=== PATIENT | female | born 1930 | race Caucasian/White ===

== ENCOUNTER 2018-01-27 15:59 | Emergency (ER) | payer MEDICARE, BC ==
[2018-01-27 16:03] VITALS: BP 179/69
--- NOTE | 2018-01-27 16:06 | EDM.PDOC ---
"ED HPI GENERAL MEDICAL PROBLEM - General Chief Complaint: Lower Extremity Injury/Pain Stated Complaint: IN BY AMBULANCE Time Seen by Provider: 01/27/18 16:06 Source of Information: Reports: Patient, EMS, Family, RN, RN Notes Reviewed History Limitations: Reports: No Limitations - History of Present Illness INITIAL COMMENTS - FREE TEXT/NARRATIVE: Pt arrives to ER by ambulance with c/o severe left hip pain sustained from a ground level fall from tripping over a floor mat at the entry of the [employer]. Pt denies head injury, neck pain, or any other injury. She was unable to get up, and cannot tolerate any ROM of the left hip. 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: IV/IO, Other Medication(s) (Fentanyl 12.5mcg IVP x1 from paramedics prior to arriving to the ER.) Left Hip Pain Score (Numeric/FACES): 9 - Related Data Allergies Allergy/AdvReac Type Severity Reaction Status Date / Time acetaminophen Allergy Cannot Verified 01/27/18 16:04 [From Darvocet-N] Remember propoxyphene napsylate Allergy Cannot Verified 01/27/18 16:04 [From Darvocet-N] Remember Home Meds: Home Meds Alendronate Sodium [Alendronate] 1 tab PO .WEEKLY 05/01/14 [History] Aspirin [Ecotrin] 1 tab PO DAILY 05/01/14 [History] Calcium Carbonate/Vitamin D3 [Calcium 600 + Vit D Tablet] 2 cap PO DAILY [History] Citalopram Hydrobromide [Celexa] 1 tab PO DAILY 05/01/14 [History] Dicyclomine [Bentyl] 1 tab PO Q6H PRN 05/01/14 [History] Docusate Sodium [Colace] 1 tab PO DAILY PRN 05/01/14 [History] Furosemide 1 tab PO DAILY 05/01/14 [History] Insulin Glarg,Human.Rec.Analog [Lantus Solostar] 20 units INJECT BEDTIME [History] Insulin Lispro [Humalog] 6 - 10 units INJECT TIDAC 05/01/14 [History] Multivitamin with Minerals [Multiple Vitamin] 1 tab PO DAILY 05/01/14 [History] Omeprazole 1 tab PO DAILY PRN 05/01/14 [History] atorvaSTATin Calcium [Atorvastatin Calcium] 1 tab PO BEDTIME 05/01/14 [History] metroNIDAZOLE [Metronidazole] 1 applic TOP ASDIRECTED PRN 05/01/14 [History] Metoprolol Tartrate [Lopressor] 25 mg PO BID 06/27/15 [History] Amylase/Lipase/Protease [Pancrelipase 5,000] 30,000 units PO TID 07/17/15 [ History] traZODone 150 mg PO BEDTIME 07/17/15 [History] Past Medical History HEENT History: Reports: Impaired Vision Cardiovascular History: Reports: CAD, High Cholesterol, Hypertension, [place] Other Cardiovascular History: [place] and Chf06/04/2015 Other Respiratory History: 06/04/2015 Other Genitourinary History: History of renal cell cancer. Nephrectomy Other Musculoskeletal History: Back surgery Other Neuro History: and patient state that she is having memory problems Endocrine/Metabolic History: Reports: Diabetes, Type I Oncologic (Cancer) History: Reports: Other (See Below) Other Oncologic History: kidney - Past Surgical History HEENT Surgical History: Reports: Cataract Surgery Social & Family History - Family History Family Medical History: Noncontributory - Living Situation & Occupation Living situation: Reports: , with Spouse Occupation: Retired Review of Systems - Review of Systems Review Of Systems: ROS reveals no pertinent complaints other than HPI. ED EXAM, GENERAL - Physical Exam Exam: See Below Exam Limited By: No Limitations General Appearance: Alert, WD/WN, No Apparent Distress Eye Exam: Bilateral Eye: Normal Inspection Ears: Normal External Exam, Hearing Grossly Normal Nose: Normal Inspection Throat/Mouth: Normal Inspection, Normal Voice, No Airway Compromise Head: Atraumatic, Normocephalic Neck: Normal Inspection, Supple, Non-Tender, Full Range of Motion Respiratory/Chest: No Respiratory Distress, Lungs Clear, Normal Breath Sounds, No Accessory Muscle Use, Chest Non-Tender Cardiovascular: Regular Rate, Rhythm GI/Abdominal: Normal Bowel Sounds, Soft, Non-Tender, No Distention. No: Guarding, Rigid, Rebound (Female) Exam: Deferred Rectal (Female) Exam: Deferred Extremities: Normal Capillary Refill, Leg Pain (tender to light palpation of left hip, left lower extremity is shortened and externally rotated.), Limited Range of Motion (left hip due to pain) Neurological: Alert, Oriented, CN II-XII Intact, Normal Cognition, No Motor/ Sensory Deficits Psychiatric: Normal Mood Skin Exam: Warm, Dry, Intact, Normal Color, No Rash Course - Vital Signs Last Recorded V/S: Last Vital Signs Temp 37.2 C 01/27/18 16:01 Pulse 82 01/27/18 16:01 Resp 18 01/27/18 16:01 BP 179/69 H 01/27/18 16:01 Pulse Ox 98 01/27/18 16:01 - Orders/Labs/Meds Meds: Medications Discontinued Medications Generic Name Dose Route Start Last Admin Trade Name Freq PRN Reason Stop Dose Admin Fentanyl 50 mcg 01/27/18 16:49 01/27/18 16:55 Sublimaze IVPUSH 01/27/18 16:50 50 mcg ONETIME ONE Administration - Radiology Interpretation Free Text/Narrative:: [facility] Final Radiology Report Call: [phone] assistance Online chat: [email or web address] Name: PINKY ALAN Age: 87Years F Date: 01/27/2018 SSN: -- : [id number] Study: CT PELVIS WO Requesting Physician: GRAY GREENBERG Images: [id number] Addl Studies: Provided Clinical History: Contrast: Without Contrast Medium: Contrast Amount: Contrast Method: Page 1 of 2 EXAM: CT Pelvis Without Intravenous Contrast EXAM DATE/TIME: 01/27/2018 4:18 PM CLINICAL HISTORY: The patient is a 87 years female; Signs and symptoms; Other: Fall, pain TECHNIQUE: Axial computed tomography images of the pelvis without intravenous contrast. All CT scans at this facility use one or more dose reduction techniques, viz.: automated exposure control; ma/kV adjustment per patient size (including targeted exams where dose is matched to indication; i.e. head); or iterative reconstruction technique. Coronal and sagittal reformatted images were created and reviewed. COMPARISON: No relevant prior studies available. FINDINGS: Bones/joints: Comminuted fracture proximal left femur 12 mm displacement maximally. Vertical fracture line through the greater trochanter into the subtrochanteric region. Transverse fracture through base of the femoral neck. Bilateral healed pubic ring fractures. There are moderate degenerative changes within the spine. No dislocation. Soft tissues: Unremarkable. Vasculature: There is atherosclerotic calcification of the aorto-iliac tree. There is no abdominal aortic aneurysm. PINKY ALAN | Final Radiology Report CONFIDENTIALITY STATEMENT This report is intended only for use by the referring physician, and only in accordance with law. If you received this in error, call [phone]. Page 2 of 2 Stomach and bowel: Multiple colonic diverticula. Bladder: Unremarkable. No stones. IMPRESSION: Comminuted fracture involving intratrochanteric and subtrochanteric portions of left femur 12 mm displacement maximally. Details above. Thank you for allowing us to participate in the care of your patient. Dictated and Authenticated by: Dharmesh Sargent MD 01/27/2018 4:49 PM Central Time ([place] & [place]) CT Results Date: 01/27/18 Departure - Departure Time of Disposition: 16:36 Disposition: DC/Tfer to Acute Hospital 02 Condition: Fair Clinical Impression: Closed left hip fracture Qualifiers: Encounter type: initial encounter Qualified Code(s): S72.002A - Fracture of unspecified part of neck of left femur, initial encounter for closed fracture - Discharge Information Referrals: PCP,None [Primary Care Provider] - Forms: ED Department Discharge, Interfacility Transfer ALEJO"
[2018-01-27] MEDS ORDERED: fentaNYL 100 MCG/2 ML SDV IVPUSH ONE (16:49)
== END 2018-01-27 17:11 ==
LOC: DL.ED 15:59
DX: S72.142A Displaced intertrochanteric fracture of left femur, initial encounter for closed fracture (principal); S72.22XA Displaced subtrochanteric fracture of left femur, initial encounter for closed fracture; I25.2 Old myocardial infarction; I10 Essential (primary) hypertension; E10.9 Type 1 diabetes mellitus without complications; Z88.8 Allergy status to other drugs, medicaments and biological substances; Z79.82 Long term (current) use of aspirin; Z79.899 Other long term (current) drug therapy; W18.30XA Fall on same level, unspecified, initial encounter
CPT/HCPCS: 51702; 72192; 99285; J3010; 99284